=== PATIENT | female | born 1955 | race Caucasian/White ===

== ENCOUNTER 2020-09-21 16:41 | Emergency (ER) | payer OTHER ==
[~2020-09-21] VITALS: Ht 160 cm; Wt 61.2 kg
[2020-09-21] MEDS ORDERED: EFFEXOR XR75 MG PO (17:02)
[2020-09-21] MEDS ORDERED: PERCOCET 5-3251 EACH PO (17:03)
[2020-09-21] MEDS ORDERED: ONDANSETRON ODT8 MG PO (20:15)
== END 2020-09-21 20:52 | disposition home or self-care (01) ==
LOC: ED 16:41
DX: K29.70 Gastritis, unspecified, without bleeding (principal); R51.9 Headache, unspecified; Z87.891 Personal history of nicotine dependence; Z79.899 Other long term (current) drug therapy
CPT/HCPCS: 80053; 81001; 85025; 96374; 96375; 96376; 99284-25; J1200; J1790; J1885; J2060; J7030